=== PATIENT | female | born 1950 | race Caucasian/White ===

== ENCOUNTER 2020-01-30 08:34 | Day surgery (SDC) | payer MEDICARE ==
[~2020-01-30] VITALS: Ht 160 cm; Wt 69.0 kg
[~2020-01-30 08:34] MED LIST: AMLO2.5T2 PO; ASPI-496 PO; ATOR10TA PO; FERR325T18 PO
[2020-01-30] MEDS ORDERED: DIPHENHYDRAMINE 50 MG/ML, 1ML IVPush ONE (09:00)
[2020-01-30] MEDS ORDERED: GLUC1TAB55 PO (09:05)
[2020-01-30] MEDS ORDERED: TADA20TA33 PO (09:05)
[2020-01-30] MEDS ORDERED: CALC625T13 PO (09:05)
[2020-01-30] MEDS ORDERED: FERR325T23 PO (09:05)
[2020-01-30] MEDS ORDERED: AMBR10TA5 PO (09:05)
[2020-01-30] MEDS ORDERED: CHOL10003 PO (09:05)
[2020-01-30] MEDS ORDERED: MULT-758 PO (09:05)
[2020-01-30] MEDS ORDERED: DOCU-180 PO (09:05)
[2020-01-30] MEDS ORDERED: calcium PO (09:05)
[2020-01-30 10:09] LABS: BASOPHILS # (AUTO) 0.03 x10^3/uL (0-0.1); BASOPHILS % (AUTO) 1 % (0-1); EOSINOPHILS # (AUTO) 0.07 x10^3/uL (0-0.4); EOSINOPHILS % (AUTO) 2 % (1-7); LYMPHOCYTES # (AUTO) 0.67 x10^3/uL (1-3.4); LYMPHOCYTES % (AUTO) 18 % (22-44); MD NO; MEAN CORPUSCULAR HEMOGLOBIN 29.9 pg (27.0-34.8); MEAN CORPUSCULAR HGB CONC 32.4 g/dL (32.4-35.8); MEAN CORPUSCULAR VOLUME 92.1 fL (80-100); MEAN PLATELET VOLUME 8.6 fL (7.4-10.4); MONOCYTES # (AUTO) 0.27 x10^3/uL (0.2-0.8); MONOCYTES % (AUTO) 7 % (2-9); NEUTROPHILS # (AUTO) 2.73 x10^3/uL (1.8-6.8); NEUTROPHILS % (AUTO) 72 % (42-75); PLATELET COUNT 178 x10^3/uL (130-400); RED BLOOD COUNT 4.54 x10^6/uL (3.82-5.3); RED CELL DISTRIBUTION WIDTH 14.5 % (9.6-15.2)
[2020-01-30] MEDS ORDERED: DIPHENHYDRAMINE 50 MG/ML, 1ML ONE (10:14)
[2020-01-30 10:20] LABS: ANION GAP 5 mmol/L (5-15); CALCIUM 9.9 mg/dL (8.5-10.1); CHLORIDE 110 mmol/L (98-107)
[2020-01-30 10:21] LABS: CREATININE 0.85 mg/dL (0.55-1.02)
[2020-01-30] MEDS ORDERED: FENTANYL PF 100 MCG/2ML ONE (10:22)
[2020-01-30] MEDS ORDERED: MIDAZOLAM 1 MG/ML, 2ML ONE (10:22)
[2020-01-30 10:30] LABS: INTERNATIONAL NORMALIZED RATIO 0.95 (0.93-1.1); PROTHROMBIN TIME 10.1 Seconds (9.6-11.5)
[2020-01-30] MEDS ORDERED: LIDOCAINE-MPF 1%, 5ML ONE (10:38)
[2020-01-30] MEDS ORDERED: LIDOCAINE 2%, 20ML ONE (10:39)
[2020-01-30] MEDS ORDERED: SODIUM CHLORIDE 0.9% 1,000 ML IV SCH (11:00)
== END 2020-01-30 13:33 | disposition home or self-care (01) ==
LOC: CACL 08:34
PROVIDERS: ATTEND Internal Medicine Cardiovascular Disease
DX: I27.20 Pulmonary hypertension, unspecified (principal); I08.1 Rheumatic disorders of both mitral and tricuspid valves; I10 Essential (primary) hypertension; E78.5 Hyperlipidemia, unspecified; Z79.01 Long term (current) use of anticoagulants; Z79.899 Other long term (current) drug therapy; Z88.0 Allergy status to penicillin; Z88.8 Allergy status to other drugs, medicaments and biological substances
CPT/HCPCS: 36415; 80048; 85025; 85610; 93451; 99156; C1769; C1894; J1200; J2250; J3010